=== PATIENT | male | born 1945 | race Caucasian/White ===

== ENCOUNTER → 2017-10-28 12:47 | Outpatient (CLI) | payer MEDICARE, SELFPAY ==
--- NOTE | 2017-10-28 | US_ITS ---
US Arterial lower stress History: Smoker, hypertension, hyperlipidemia, bilateral bilateral claudication. ORDERING PHYSICIAN: Kaushik Jennings MD PATIENT AGE: 72 years TECHNIQUE: Segmental pressures obtained of both right and left leg before and after exercise.. These are compared to brachial blood pressure to yield index at each level sampled including summary AKILAH. The data sheets from the procedure are available in PACS FINDINGS Rest and stress study performed today Right leg AKILAH preexercise equals 0.9 Right leg AKILAH postexercise ankle 0.5. This was persistent at 1 minute, 2 minutes, 3 minutes, and 4 minutes Left AKILAH was 1.0 at rest and 0.5 post exercise, at 1, 2, 3 minutes and was 0.6 at 4 minutes. Right TBI was 0.7 and left TBI was 0.7 at rest. There are abnormal waveforms bilaterally with diminished pulses on the right. IMPRESSION: The ABIs are normal at rest but become abnormal stress with nearly 50% reduction at stress suggesting underlying peripheral vascular disease. CT angiogram may confirm. The TBIs are slightly low suggesting small vessel disease
== END ==
PROVIDERS: Family Provider Family Medicine; PCP Family Medicine; Visit Provider Family Medicine
DX: I73.9 Peripheral vascular disease, unspecified (principal)
CPT/HCPCS: 93924

== ENCOUNTER → 2017-11-07 13:45 | Outpatient (CLI) | payer MEDICARE, SELFPAY ==
[2017-11-07 14:05] LABS: Blood Urea Nitrogen 29 mg/dL (7-18); Estimated Glomerular Filt Rate 50 ml/min (>60); GFR (African American) 60 ML/MIN (>60)
--- NOTE | 2017-11-07 14:05 | CT_ITS ---
CT angio abdomen/femoral runoff Ordering Physician: Kaushik Jennings MD Patient Age: 72 years: Male HISTORY: ITS.REASON: ABNORMAL AKILAH, HTN, SMOKER Abnormal AKILAH. Left leg pain. Abnormal AKILAH with stress TECHNIQUE: Thin section helical CT scanning performed through the abdomen/pelvis & then continuing through the entire lower extremities through ankle/feet blaterally. This aortogram/femoral runoff protocol uses contrast and scan timing designed to primarily evaluate these vascular structures. . Thick mipp as well as 3-D volume rendering with shading reconstructions and oblique reconstructions performed on independent workstation.... ( CTA or... 77 CPT) COMPARISON :Rest and stress lower extremity physiologic arterial evaluation revealed abnormal AKILAH following exercise stress Also a CTA chest July 2016 included down to the kidneys FINDINGS Liver, diffuse fatty changes which have progressed since 2017. Stable tiny likely cyst posterior dome of liver 7 mm size at 5 mm. Not of concern. Spleen pancreas adrenals satisfactory. Gallbladder. No gallstones. Prominent stool throughout the right and transverse colon reflecting constipation. Vascular Structures/Arterial Tree: ABDOMINAL AORTA. Diffuse circumferential atheromatous plaque and calcified plaque which begins thoracoabdominal aorta and continues throughout, but becoming most pronounced inferiorly. At inferior abdominal aorta just anterior to the L4 vertebral body there is what a transverse membrane at the posterior aspect of the aorta. Suggestive of a small saccular aneurysm or generous undercut ulcerated plaque follow-up posterior wall of the lower abdominal aorta. Small localized area of dissection less likely.. Continuing inferiorly, at L4/5 level there is separate similar peripheral membrane-like area along left peripheral aspect of the aorta just above bifurcation,... Again suspect a undercut ulcerated plaque possibly small developing saccular aneurysm.,. Localized dissection less likely but could yield similar appearance to yield both areas....... (addendum may follow after additional review and manipulation on CT workstation.) In either case suggest cardiovascular/interventional cardiology consult and follow-up . Other features at aorta:Celiac and SMA origin patent adequate only minimal plaque. Renal arteries. Moderate plaque origin left renal artery more so than right I however there is good enhancement both kidneys. 3 cm benign renal cyst off the lateral right kidney again noted and unchanged since July and 2016 LEFT LEG Moderate plaque at origin left common iliac vessels.. Up to 40% stenosis at the proximal left iliac. Again there appears to be either a small undercut ulcerating plaque. Less Likely small developing saccular aneurysm here off the posterior aspect of proximal left common iliac artery, seen just proximal to the external iliac origin . There is moderate plaque at the distal left external iliac which yields a 30 days 40% stenosis maximally. The left common femoral artery with mild/moderate plaque 30% stenosis. The SFA demonstrates scattered areas of plaque and minimal stenosis. There slightly more evident 30-40% stenosis distally at the adductor/Tito's canal Minimal plaque throughout the popliteal artery but no high-grade stenosis here. Surprisingly good three-vessel runoff to the ankle and foot. Would note that there is mild to moderate plaque at the proximal most anterior tibial artery just below trifurcation. Areas of 40-50% stenosis suggested here.. However beyond this point there seems to be minimal disease to the foot. RIGHT LEG [id number] calcified plaque plaque along the posterior aspect of the origin and proximal right common iliac artery. Less than 25% stenosis result
== END ==
PROVIDERS: Family Provider Family Medicine; PCP Family Medicine; Visit Provider Family Medicine
DX: R09.89 Other specified symptoms and signs involving the circulatory and respiratory systems (principal); R68.89 Other general symptoms and signs
CPT/HCPCS: 36415; 75635; 82565; 84520; Q9967

== ENCOUNTER → 2018-03-24 14:26 | Outpatient (POV) | payer MEDICARE, SELFPAY | PROVIDERS: Visit Provider Dermatology | DX: Z00.00 Encounter for general adult medical examination without abnormal findings (principal) ==